=== PATIENT | female | born 1990 | race African-American/Black ===

== ENCOUNTER 2018-07-27 21:26 | Emergency (ER) | payer OTHER ==
[~2018-07-27] VITALS: Ht 157.5 cm; Wt 68.0 kg
[2018-07-27 21:48] VITALS: BP 123/81
--- NOTE | 2018-07-27 21:55 | NUR ---
ED Nurse Note: Received report. Pt from home, AAOx4, needing wheelchair assistance to room, c/o left ankle pain after falling down stairs almost an hour ago. VSS. Skin intact. Ice pack placed on left ankle.
--- NOTE | 2018-07-27 22:03 | Emergency Room Report ---
History of Present Illness General Chief Complaint: Lower Extremity Injury Source: Patient Present Illness HPI 45 minutes prior to presentation patient tripped over her nephew and twisted her left ankle. She is unable to ambulate and the swelling and pain there. The pain is somewhat better with elevation she reports at 5/10 at this time, aching. There is swelling there and no numbness. The patient states that her last period was normal and she is not at this time. She denies any medical problems. 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 Last Menstrual Period: 07/05 Now: No : 6 Reviewed Nursing Documentation: PMH: Agreed; PSxH: Agreed Nursing Documentation-PMH Past Medical History: No Stated History Review of Systems Constitutional: Denies: fever Respiratory: Denies: shortness of breath Genitourinary: Reports: see HPI Musculoskeletal: Reports: see HPI Skin: Denies: rash Neurological: Reports: see HPI Physical Exam Vital Signs Date Time Temp Pulse Resp B/P (MAP) Pulse Ox O2 Delivery O2 Flow Rate FiO2 07/27/18 21:48 99.0 94 20 123/81 (95) 99 Room Air Sp02 EP Interpretation: reviewed, normal General Appearance: well appearing, no apparent distress, GCS 15 Head: normocephalic, atraumatic Eyes: bilateral eye normal inspection, bilateral eye PERRL ENT: hearing grossly normal, normal voice Neck: full range of motion, supple Respiratory: no respiratory distress, speaking full sentences Musculoskeletal: no calf tenderness, swelling - Lateral malleolus with point tenderness. Fifth metatarsal without tenderness. Knee ligaments stable and nontender. Neurologic: alert, motor strength/tone normal - Distal, sensory intact - Distal , normal gait Psychiatric: mood/affect normal Skin: no rash Medical Decision Making Diagnostic Impression: Primary Impression: Closed left fibular fracture Qualified Codes: S82.822A - Torus fracture of lower end of left fibula, initial encounter for closed fracture ER Course Patient presents with left ankle injury. Based on [place] ankle rules there is a possibility of a fracture there. Other considerations are sprain and contusion. Motrin is given and x-rays are indicated. X-ray with distal fibular fracture. Posterior splint applied by tech. Position excellent and neurovascular checked by me and normal. Discussed treatment plan with patient. Patient stable for outpatient observation and treatment. Other X-Ray Diagnostic Results Other X-Ray Diagnostic Results : X-Ray ordered: Left ankle # of Views/Limited Vs Complete: 3 View Indication: Other EP Interpretation: Yes Interpretation: no dislocation, other - Distal fibular fracture with soft tissue swelling Electronically Signed by: Electronically signed by Higinio Kim MD Last Vital Signs Date Time Temp Pulse Resp B/P (MAP) Pulse Ox O2 Delivery O2 Flow Rate FiO2 07/27/18 22:45 99.0 07/27/18 21:48 94 20 123/81 (95) 99 Room Air Status: improved Disposition: HOME, SELF-CARE Condition: Improved Scripts Tramadol Hcl* (ULTRAM*) 50 Mg Tablet 50 MG ORAL Q6H PRN for For Pain, #8 TAB 0 Refills Prov: Higinio Kim MD 07/27/18 Ibuprofen* (MOTRIN*) 600 Mg Tablet 600 MG ORAL Q6H PRN for For Pain, #20 TAB 0 Refills Prov: Higinio Kim MD 07/27/18 Higinio Kim MD July 27, 2018 22:03
[2018-07-27] MEDS ORDERED: TRAMADOL HCL50 MG ORAL (23:17)
[2018-07-27] MEDS ORDERED: IBUPROFEN600 MG ORAL (23:17)
--- NOTE | 2018-07-27 23:50 | NUR ---
ED Nurse Note: Pt cleared by health care Provider for discharge. DC instructions/prescription was given and explained to pt and verbalized understanding of teachings. All medical deviecs such as ID band removed. Pt is AAO x4, ambulatory and left with all personal belongings.
--- NOTE | 2018-07-28 11:22 | Diagnostic Imaging Report ---
Indication: Pain, status post fall from stairs Technique: 3 views of the left ankle Comparison: none Findings: There is an oblique fracture of the distal fibula. This is mildly posteriorly displaced. There is overlying soft tissue swelling. There is equivocal minimal widening of the medial ankle mortise. There is chronic appearing periosteal thickening of the more proximal tibia, incompletely included. Impression: Positive for distal fibular fracture Equivocal minimal widening of the medial ankle mortise, could indicate medial ligamentous injury if real. Correlate with clinical findings This agrees with the patient's discharge diagnosis from the emergency room
== END 2018-07-27 23:48 | disposition home or self-care (01) ==
LOC: EMR 22:19
DX: S82.822A Torus fracture of lower end of left fibula, initial encounter for closed fracture (principal); X50.1XXA Overexertion from prolonged static or awkward postures, initial encounter; Y92.9 Unspecified place or not applicable
CPT/HCPCS: 29515; 99283